=== PATIENT | male | born 1965 | race Caucasian/White ===

== ENCOUNTER 2023-03-25 11:14 | Emergency (ER) | payer SELFPAY ==
[2023-03-25 11:20] VITALS: BP 125/74; PULSE 72; RESP 16; TEMP 36.1; O2SAT 97; BMI 24.4
--- NOTE | 2023-03-25 11:22 | DI.RAD.S_ITS ---
PROCEDURE: XR KNEE LT 3V INDICATIONS: hx knee replacement,hit knee yesterday. TECHNIQUE: 3 views of the knee were acquired. COMPARISON: None. FINDINGS: Bones: There is a linear calcification along the medial femoral condyle. No suspicious bony lesions. Appear to be hardware is intact without evidence of hardware fracture or periprosthetic lucency to suggest loosening. Soft tissues: No joint effusion. No suspicious soft tissue calcifications. IMPRESSION: Linear calcification along the medial femoral condyle. Avulsion fracture cannot be excluded. Dictated by: Cecelia Tirado M.D. on 03/25/2023 at 12:15 Approved by: Cecelia Tirado M.D. on 03/25/2023 at 12:17
--- NOTE | 2023-03-25 12:19 | ED_ITS ---
HPI - Extremity Injury (Lower) <JULIAN Burt - Last Filed: 03/25/23 14:52> General Chief Complaint: Extremity Injury, Lower Stated Complaint: fell had knees replaced & is worried about damage Time Seen by Provider: 03/25/23 12:10 Source: patient Mode of arrival: Ambulatory History of Present Illness HPI Narrative: This is a 57-year-old male with history of bilateral total knee arthroplasties who presents emergency department after a injury to his right knee yesterday using a motorized flight machine when he was not fully buckled in, states there may have been a twisting and impact injury with his left knee. Complains of pain along the medial aspect, denies any tenderness on the lateral aspect, denies pain over the patella and denies pain with bearing weight. States that his range of motion is decreased due to pain. He is without numbness or tingling. States that his arthroplasties are 4 years old and completed in another state. Related Data Allergies Allergy/AdvReac Type Severity Reaction Status Date / Time No Known Drug Allergies Allergy Verified 03/25/23 11:20 Review of Systems <JULIAN Burt - Last Filed: 03/25/23 14:52> Review of Systems ROS Unobtainable: All systems reviewed & are unremarkable except as noted in HPI and below Patient History <JULIAN Burt - Last Filed: 03/25/23 14:52> Social History Smoking Status: Unknown if ever smoked Smoking Status: Unknown if ever smoked alcohol intake frequency: 0-2 drinks per day Substance Use Type: marijuana Exam <JULIAN Burt - Last Filed: 03/25/23 14:52> Narrative Exam Narrative: Reviewed vitals signs and nursing notes. General: Pleasant, sitting upright, in no acute distress, well groomed, afebrile MSK: Left knee with tenderness over the MCL, no tenderness over patellar tendon, LCL, no weakness, normal tone, ambulatory without deficit, no tenderness over patella. Skin: brisk capillary refill, without rash or wound Initial Vital Signs Initial Vital Signs: Vital Signs Temperature 97.0 F L 03/25/23 11:20 Pulse Rate 72 03/25/23 11:20 Respiratory Rate 16 03/25/23 11:20 Blood Pressure 125/74 03/25/23 11:20 Pulse Oximetry 97 03/25/23 11:20 Oxygen Delivery Method Room Air 03/25/23 11:20 <Akbar Hudson DO - Last Filed: 03/25/23 22:16> Initial Vital Signs Initial Vital Signs: Vital Signs Temperature 97.0 F L 03/25/23 11:20 Pulse Rate 72 03/25/23 11:20 Respiratory Rate 16 03/25/23 11:20 Blood Pressure 125/74 03/25/23 11:20 Pulse Oximetry 97 03/25/23 11:20 Oxygen Delivery Method Room Air 03/25/23 11:20 Procedures <JULIAN Burt - Last Filed: 03/25/23 14:52> Orthopedic Splinting/Casting Injury #1: Side: left Lower Extremity Injury Location: knee Lower Extremity Immobilizer: knee immobilizer and He wrap Post splinting neuro exam: intact Post splinting vascular exam: intact Placed by: Provider Course <JULIAN Burt - Last Filed: 03/25/23 14:52> Orders Ordered: Discontinued Medications Ibuprofen (Ibuprofen 400 Mg Tablet) 800 mg PO NOW ONE Stop: 03/25/23 12:39 Last Admin: 03/25/23 13:05 Dose: Not Given Documented By: ISSAC Vital Signs Vital signs: Vital Signs - 8 hr 03/25/23 11:20 Temperature 97.0 F L Pulse Rate 72 Respiratory Rate 16 Blood Pressure 125/74 Pulse Oximetry 97 Oxygen Delivery Method Room Air <Akbar Hudson DO - Last Filed: 03/25/23 22:16> Orders Ordered: Discontinued Medications Ibuprofen (Ibuprofen 400 Mg Tablet) 800 mg PO NOW ONE Stop: 03/25/23 12:39 Last Admin: 03/25/23 13:05 Dose: Not Given Documented By: ISSAC Vital Signs Vital signs: Vital Signs - 8 hr 03/25/23 11:20 Temperature 97.0 F L Pulse Rate 72 Respiratory Rate 16 Blood Pressure 125/74 Pulse Oximetry 97 Oxygen Delivery Method Room Air MDM - Extremity Injury (Lower) <JULIAN Burt - Last Filed: 03/25/23 14:52> Imaging Data Extremity x-ray #1: Radiologist's Impression: PROCEDURE:? XR KNEE LT 3V ? INDICATIONS:? hx knee replacement,hit knee yesterday. ? TECHNIQUE:? 3 views of the knee were acquired.? ? COMPARISON:? None. ? FINDINGS:? ? Bones:? There is a linear calcification along the medial femoral condyle.? No suspicious bony lesions.? Appear to be hardware is intact without evidence of hardware fracture or periprosthetic lucency to suggest loosening. ? Soft tissues:? No joint effusion.? No suspicious soft tissue calcifications.? ? ? IMPRESSION:? Linear calcification along the medial femoral condyle.? Avulsion fracture cannot be excluded.? ? ? Dictated by: Cecelia Tirado M.D. on 03/25/2023 at 12:15 ? ? Approved by: Cecelia Tirado M.D. on 03/25/2023 at 12:17 ? LT LE CT: Radiologist's Impression: PROCEDURE:? CT LE LT W CON ? INDICATIONS:? r/o avulsion fracture ? TECHNIQUE:? Noncontrast 3 mm axial sections acquired of the left distal femur , with coronal and sagittal reformats. ? ? COMPARISON:? [facility], CR, XR KNEE LT 3V, 03/25/2023, 11:33. ? FINDINGS:? Image quality:? Excellent.? ? Bones:? Linear calcification noted in the prior conventional radiograph does not the to correspond with a small cortical avulsion fracture arising from the medial cortex of the medial femoral condyle as noted on image 3/104.? And there is artifact arising from total hip arthroplasty.? Instrumentation itself is intact and well positioned.? No evidence of hardware failure or loosening ? Soft tissues:? Moderate joint effusion present. ? IMPRESSION:? ? Small cortical avulsion fracture arising from the non articular medial femoral condyle corresponds with linear calcification on the prior conventional radiograph ? Total knee arthroplasty in good position.? No evidence of hardware failure or loosening. ? Moderate joint effusion ? ? ? Approved by: Fadi Freedman M.D. on 03/25/2023 at 12:21? MDM Narrative Medical decision making narrative: Chief Complaint: left knee injury Independent historian: Patient Multiple etiologies for patient's symptoms considered including, but not limited to: Sprain/strain, MCL injury, avulsion fracture, hardware malfunction/failure, patellar injury, other ligamental injury, knee effusion I have independently reviewed the patient's vital signs and nursing notes as well as prior records if available. Pertinent records include: No prior records on review My interpretation of imaging: Left knee x-ray shows some calcification along the medial femoral condyle, concerning for avulsion fracture without hardware fracture or periprosthetic lucency Consultations: Contact information for [facility] was provided Course of care: I fit patient in a left knee immobilizer, gave him He bandages to use at nighttime. He tolerated this well, was ambulatory without deficit, neurovascularly intact, understands to follow-up with [facility] and return to the emergency department for new or worsening condition. Social considerations that may affect disposition: none Questions are addressed and there is agreement with the plan and for follow-up. I consulted with the ED attending physician Dr. Valiente as needed for higher level of care considerations and they were available for discussion and recommendations regarding plan of care and diagnostic testing. Patient is appropriate for outpatient management. Discharge Plan Departure Patient Disposition: Home Clinical Impression: Avulsion fracture of condyle of left femur Instructions: DI for Avulsion Fracture Activity Restrictions/Additional Instructions: *You have been diagnosed with an avulsion fracture of your left knee with concern regarding your left MCL ligament. This has pulled a small piece of bone off and predisposes you to increased risk of injury with knee movement. I have given you a knee immobilizer to help protect this over the next few days since the joint is swollen. Please take ibuprofen 800 mg with food and water every 8 hours, use Tylenol in addition to this for increased pain, ice it, rest it, try to avoid any traumatic injury. You may wear a simple He bandage at nighttime if this is helpful. Please keep something on it at all times to help keep it safe, schedule follow-up at [facility] for follow-up, Dr. Connors was consulted today but in surgery so I was not able to give you clear instructions. Please schedule your appointment with any the doctors at [facility] and state that you are here in the emergency department today and have a left sided avulsion fracture of the medial condyle of your left femur and history of left knee total arthroplasty. *What to do: *Please continue to take your regular medications as directed. [ ] New medication prescriptions sent to your pharmacy: [ ] [ ] New medication written as a paper prescription [ x] No new medications given *Please call and schedule follow up with your primary care provider in 2-3 days, at least for an update. Let them know you were seen in the Emergency Department for the above problem. We will electronically transmit a record of today's note if your PCP or specialist is in our system. *If you do not have a primary care provider please contact [phone] to [facility] with one of the [facility] primary care providers. *Return to the Emergency Department for worsening symptoms, inability to keep liquids down, fever greater than 101F, chills, or other concerning symptom. Referrals: [facility] [Provider Group] Williams Connors MD [Physician] - Stand Alone Forms: Patient Portal/API <Akbar Hudson DO - Last Filed: 03/25/23 22:16> Cosign ED Attending Cosignature Attestation: I was immediately available in the department for consultation. This documentation has been reviewed and I agree with assessment and plan. Supervised by Akbar Hudson DO
--- NOTE | 2023-03-25 12:38 | DI.CT.S_ITS ---
PROCEDURE: CT LE LT W CON INDICATIONS: r/o avulsion fracture TECHNIQUE: Noncontrast 3 mm axial sections acquired of the left distal femur , with coronal and sagittal reformats. COMPARISON: [facility], CR, XR KNEE LT 3V, 03/25/2023, 11:33. FINDINGS: Image quality: Excellent. Bones: Linear calcification noted in the prior conventional radiograph does not the to correspond with a small cortical avulsion fracture arising from the medial cortex of the medial femoral condyle as noted on image 3/104. And there is artifact arising from total hip arthroplasty. Instrumentation itself is intact and well positioned. No evidence of hardware failure or loosening Soft tissues: Moderate joint effusion present. IMPRESSION: Small cortical avulsion fracture arising from the non articular medial femoral condyle corresponds with linear calcification on the prior conventional radiograph Total knee arthroplasty in good position. No evidence of hardware failure or loosening. Moderate joint effusion Approved by: Fadi Freedman M.D. on 03/25/2023 at 12:21
== END 2023-03-25 14:00 | disposition home or self-care (01) ==
PROVIDERS: Emergency Provider Nurse Practitioner Critical Care Medicine
DX: S72.92XA Unspecified fracture of left femur, initial encounter for closed fracture (principal); W22.8XXA Striking against or struck by other objects, initial encounter
CPT/HCPCS: 73562; 73700; 99283